=== PATIENT | female | born 1960 | race Caucasian/White ===

== ENCOUNTER 2019-04-09 11:23 | Outpatient (CLI) | payer BC ==
[2019-04-09] VITALS (21 sets, daily range): BP systolic 96–131; BP diastolic 61–90
== END 2019-04-09 23:59 | disposition home or self-care (01) ==
LOC: CARD DIAG 11:23
PROVIDERS: ATTEND Internal Medicine Cardiovascular Disease
DX: R42 Dizziness and giddiness (principal)
CPT/HCPCS: 93660

== ENCOUNTER 2019-07-30 01:05 | Outpatient (CLI) | payer SELFPAY ==
[2019-07-30 09:10] LABS: CHOL/HDL RATIO 3.22 (0.00-4.99)
[2019-07-30 09:22] LABS: HEMOGLOBIN A1C 5.1 % (4.5-6.2)
== END 2019-07-30 23:59 | disposition home or self-care (01) ==
LOC: HW HEART 01:05
DX: Z13.6 Encounter for screening for cardiovascular disorders (principal)
CPT/HCPCS: 36415